=== PATIENT | male | born 1995 | race Caucasian/White ===

== ENCOUNTER 2017-09-29 14:27 | Emergency (ER) | payer OTHER ==
[2017-09-29] MEDS ORDERED: NS 0.9% 1000 ML* 2,000 ML IV ONE (14:41)
[2017-09-29] MEDS ORDERED: Metoclopramide IV* 5 MG/ML 2 ML VIAL IV ONE (14:41)
--- NOTE | 2017-09-29 15:00 | ED ---
Substance Abuse/Use - HPI Summary HPI Summary: Patient is BIBA with alcohol intoxication. Friends called ambulance as patient was obtunded and not alert or oriented. Nausea/vomiting prior to arrival. No known significant health history and takes no medications. No allergies. Patient denies blood thinners. Beer and liquor ingested without any drugs per patient. Denies nausea at this time. Denies falling, hitting head or LOC. - History Of Current Complaint Chief Complaint: EDOverdose Stated Complaint: ETOH Time Seen by Provider: 09/29/17 14:35 Hx Obtained From: Patient Ingestion History: Type/Name Of Drug Overdose Characteristics: Oral Timing Of Abuse: Binge Use Severity Initially: Moderate Severity Currently: Moderate Alleviating Factor(s): Nothing Associated Signs And Symptoms: Negative - Risk Factor(s) Completed Suicide Risk Factors: Male - Allergies/Home Medications Allergies/Adverse Reactions: Allergies Allergy/AdvReac Type Severity Reaction Status Date / Time No Known Allergies Allergy Verified 09/29/17 14:38 Home Medications: Home Medications NK [No Home Medications Reported] 09/29/17 [History Confirmed 09/29/17] PMH/Surg Hx/FS Hx/Imm Hx Previously Healthy: Yes - Immunization History Hx Pertussis Vaccination: No Immunizations Up to Date: Unable to Obtain/Confirm Infectious Disease History: Unable to Obtain/Confirm Infectious Disease History: Denies: Traveled Outside the [place] in Last 30 Days - Social History Occupation: Student Lives: Dormitory/Roommates Alcohol Use: unable to obtain Hx Substance Use: No Substance Use Type: Reports: None Hx Tobacco Use: No Smoking Status (MU): Unknown if Ever Smoked Review of Systems Constitutional: Negative Negative: Fever, Chills, Fatigue Negative: Photophobia, Blurred Vision Negative: Palpitations, Chest Pain Negative: Shortness Of Breath, Cough Positive: Vomiting, Nausea. Negative: Abdominal Pain, Diarrhea Genitourinary: Negative Positive: no symptoms reported, see HPI Musculoskeletal: Negative Positive: Slurred Speech All Other Systems Reviewed And Are Negative: Yes Physical Exam Triage Information Reviewed: Yes Vital Signs On Initial Exam: Initial Vitals Temp Pulse Resp BP Pulse Ox 98.6 F 78 14 117/63 94 09/29/17 14:31 09/29/17 14:31 09/29/17 14:31 09/29/17 14:31 09/29/17 14:31 Vital Signs Reviewed: Yes Appearance: Positive: Ill-Appearing Skin: Positive: Skin Color Reflects Adequate Perfusion Eyes: Positive: Normal, EOMI, MELVIN ENT: Positive: Normal ENT inspection, Hearing grossly normal Respiratory/Lung Sounds: Positive: Clear to Auscultation, Breath Sounds Present Cardiovascular: Positive: Normal, RRR Musculoskeletal: Positive: Strength/ROM Intact Neurological: Positive: Normal, Speech Normal Psychiatric: Positive: Normal, Affect/Mood Appropriate AVPU Assessment: Pain (Reponds To) - painful stimuli Diagnostics - Vital Signs Vital Signs Temp Pulse Resp BP Pulse Ox 09/29/17 14:31 98.6 F 78 14 117/63 94 - Laboratory Lab Statement: Any lab studies that have been ordered have been reviewed, and results considered in the medical decision making process. Course/Dx - Course Course Of Treatment: 2L NS via IV placed on arrival. Reglan 10mg IV given. Alcohol level obtained. Alcohol level is 167. Dave shuttle to take safely back to campus. He is able to eat, drink and ambulate to the restroom. - Diagnoses Differential Diagnosis/HQI/PQRI: Positive: Alcohol Abuse Provider Diagnoses: Alcohol intoxication Discharge - Sign-Out/Discharge Documenting (check all that apply): Discharge/Admit/Transfer - Discharge Plan Condition: Stable Disposition: HOME Patient Education Materials: Alcohol Intoxication (ED) Referrals: [facility] - Dave JO [Primary Care Provider] - Additional Instructions: Drink plenty of fluids - Billing Disposition and Condition Condition: STABLE Disposition: HOME
[2017-09-29 19:06] VITALS: BP 133/66
== END 2017-09-29 19:04 | disposition home or self-care (01) ==
LOC: ED 14:27
DX: F10.129 Alcohol abuse with intoxication, unspecified (principal)
CPT/HCPCS: 36415; 80320; 96361; 96374; 99282; G0480; J2765